=== PATIENT | male | born 1985 | race African-American/Black ===

== ENCOUNTER 2019-05-22 12:54 | Emergency (ER) | payer MEDICAID ==
[2019-05-22] MEDS: ACETAMINOPHEN 500 MG TAB PO (16:22)
== END 2019-05-22 16:35 | disposition home or self-care (01) ==
LOC: FTE 12:54
DX: S00.83XA Contusion of other part of head, initial encounter (principal); S50.01XA Contusion of right elbow, initial encounter; S50.02XA Contusion of left elbow, initial encounter; Y04.2XXA Assault by strike against or bumped into by another person, initial encounter; Z87.891 Personal history of nicotine dependence
CPT/HCPCS: 99283; Z7502